=== PATIENT | male | born 1960 | race Caucasian/White ===

== ENCOUNTER 2025-06-26 05:00 | Inpatient (IN) | payer OTHER, SELFPAY ==
[2025-06-26] VITALS (10 sets, daily range): BP systolic 105–140; BP diastolic 70–95; BMI 35.8; BMI 35.4
[2025-06-26 02:35] LABS: Hematocrit 41.7 % (39.0-52.0); Hemoglobin 14.1 g/dL (13.0-18.0); Mean Corp Hgb Conc. 33.8 g/dL (33.0-37.0); Mean Corpuscular Volume 94.3 fL (80.0-94.0); Nucleated Red Blood Cells % 0 % (-); Platelet Count 277 10^3/uL (130-400); Red Cell Dist. Width 13.5 % (11.5-14.5)
[2025-06-26 03:08] LABS: ALT (SGPT) 20 U/L (0-50); AST (SGOT) 27 U/L (17-59); Albumin 4.4 g/dl (3.5-5.0); Alkaline Phosphatase 28 U/L (38-126); Blood Urea Nitrogen 21 mg/dl (9-20); Calcium 9.3 mg/dl (8.4-10.2); Carbon Dioxide 28 mmol/L (22-30); Chloride 106 mmol/L (98-107); Glucose 136 mg/dl (70-99); Potassium 4.1 mmol/L (3.5-5.1); Sodium 142 mmol/L (135-145); Total Protein 7.2 g/dl (6.3-8.2); eGFR > 60.00
[2025-06-26 03:20] LABS: Troponin I 0.021 ng/ml
--- NOTE | 2025-06-26 04:05 | ED.GENMED ---
History of Present Illness
General
Chief Complaint: Breathing Problem
Source: patient
Exam Limitations: none
Time Seen by Provider: 06/26/25 03:12
Nursing documentation reviewed up to this point in time: agreed with
History of Present Illness
History of Present Illness:
Note:
CHIEF COMPLAINT(S)
Difficulty breathing and chest pressure.
HISTORY OF PRESENT ILLNESS
The patient is a 64-year-old male with a history of congestive heart failure since his 30s, presenting with difficulty breathing and a sensation of fullness in the chest. The patient describes feeling as though his 'chest is full of water' extending
up to his throat. Associated symptoms include bloating, nausea, light-headedness, and a sense of fullness with physical activities. He reports that the symptoms are similar to those experienced during previous episodes of heart failure. The patient
denies a history of atrial fibrillation or irregular heartbeat, but mentions a past cardiac abnormality where one of the heart muscles was not functioning correctly. The patient experiences relief at rest but mentions persistent chest pressure and
headaches. He denies any current use of blood thinners. The patient reports having these symptoms for eight days. Admission to the hospital is recommended for further evaluation and management, including a transesophageal echocardiogram to rule out
any potential clots due to suspected atrial fibrillation.
PAST MEDICAL AND SURIGICAL HISTORY
Congestive heart failure diagnosis in the patients 30s.
SOCIAL DETERMINANTS AFFECTING HEALTH
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
SOCIAL HISTORY
The patient denies smoking or drug use. He previously worked as part of an electrical crew.
REVIEW OF SYSTEMS
- Respiratory: Shortness of breath, sensation of fullness in chest.
- Gastrointestinal: Bloating, nausea.
- Neurological: Lightheadedness.
- Cardiovascular: History of congestive heart failure, chest pressure.
PHYSICAL EXAM
General: Alert, no acute distress.
Skin: Warm, dry.
Head: Normocephalic, atraumatic.
Neck: Supple, trachea midline.
Eye Ears, nose, mouth and throat: Oral mucosa moist.
Cardiovascular: Normal peripheral perfusion, No edema.
Respiratory: Respirations are non-labored.
Gastrointestinal: Abdomen nondistended.
Back: Normal range of motion, Normal alignment.
Musculoskeletal: Normal range of motion, normal strength.
Neurological: Alert and oriented to person, place, time, and situation, No focal neurological deficit observed.
Psychiatric: Cooperative, appropriate mood and affect.
PLAN
The recommended plan is to admit the patient for hospital observation and further diagnostic testing, including a transesophageal echocardiogram to evaluate for the presence of any clots, due to the suspected atrial fibrillation. Blood thinners will
be initiated as part of the management plan.
DIFFERENTIAL DIAGNOSIS
The Differential Diagnosis includes, in no particular order and is not limited to:
1. Congestive Heart Failure Exacerbation
2. Atrial Fibrillation
3. Coronary Artery Disease
4. Pulmonary Edema
5. Cardiac Arrhythmia
6. Gastroesophageal Reflux Disease (GERD)
7. Anxiety or Panic Disorder
8. Acute Myocardial Infarction
9. Pericarditis
10. Hypertensive Heart Disease
Disposition:
SUMMARY OF ENCOUNTER
The patient is a 64-year-old male with a history of congestive heart failure presenting with palpitations and shortness of breath on exertion for the last eight days. There is no history of diagnosed atrial fibrillation. His symptoms also include
difficulty breathing and a sensation of chest fullness, with relief at rest but persistent chest pressure and headaches. The symptoms have led to a suspicion of new-onset atrial fibrillation and a potential exacerbation of congestive heart failure.
PLAN
The plan includes admitting the patient for further hospital observation and diagnostic testing, including a transesophageal echocardiogram to assess for potential clots due to suspected atrial fibrillation. Blood thinners may be initiated as part
of the management plan.
MEDICAL DECISION MAKING
Chronic conditions affecting care [congestive heart failure]
Differential Diagnosis included:
1. Congestive Heart Failure Exacerbation
2. Atrial Fibrillation
3. Coronary Artery Disease
4. Pulmonary Edema
5. Cardiac Arrhythmia
6. Gastroesophageal Reflux Disease (GERD)
7. Anxiety or Panic Disorder
8. Acute Myocardial Infarction
9. Pericarditis
10. Hypertensive Heart Disease
Category 1
Non-emergency department records reviewed, with consideration of differential diagnoses.
Category 3
Discussion of management with hospitalists for potential admission and treatment planning.
DIAGNOSIS
Congestive Heart Failure Exacerbation (ICD-10: I50.9)
Suspected Atrial Fibrillation (ICD-10: I48.91)
Past History
Past History
ED Past Medical History: CHF, HTN and NIDDM
Social History
Tobacco: Non-smoker
Alcohol: Occasional
Personal: Single
Living: with family
Employment: Not employed
Phy Exam
Physical Exam
Physical Exam:
.
Scores
Heart Failure Risk
Heart Failure Risk Score: Yes
History of Stroke or TIA: No
History of intubation for respiratory distress: No
Heart rate on ED arrival >/= 110: No
SaO2 <90% on arrival on room air: No
HR >/=110 during 3min walk test (or too ill to perform test): No
ECG has acute ischemic changes: No
Urea >/=12mmol/L (BUN 33.6mg/dL): No
Serum CO2>/=35mmol/L: No
Troponin I or T elevated to LA Level (0.4mg/dL): No
NT-proBNP >/=5,000ng/L (5,000pg/ml): No
HF Risk Score: 0
Admission Status: LOW RISK 2.8% Consider discharge to home with f/u visit to PCP/[employer]
Course
Orders/Labs/Results
Orders:
Orders
06/26/25 02:20
Electrocardiogram (*1) Urgent
Reason for Study: Other
Other Reason for Exam: Respiratory Distress
Cardiac Monitoring- Treatment ONCE
EKG- Treatment ONCE
IV Insert/Care/Rem.- Treatment PRN
CR Chest - 2 Views Urgent
Comment:
Reason For Exam: respiratory distress
O2 Therapy [RESP] Urgent
Titrate/Wean O2 to maintain O2 sat greater than (%): 93
Special Instructions: TO MAINTAIN CONTINUOUS O2 SATS >/= 93%
Pulse Ox/cont/shift [RESP] Urgent
Quantity: 1
Special Instructions: continuous pulse ox
06/26/25 02:28
Complete Blood Count/With Diff Urgent
Comprehensive Metabolic Panel Urgent
NT-proBNP Urgent
Troponin I Urgent
06/26/25 04:35
Admit/Transfer Patient As Directed
Co-Sign Provider:
Level of Care: Inpatient admission
Assign to:: IVU
Physician / Group: He Camejo
Diagnosis: New onet rapid A-fib
Reason for Hospitalization: IV medications
Cardiology Consultation
Expected length of stay greater than two midnights?: Yes
ELOS- Estimated Length of Stay in days: 2
I certify the patient meets the requirements for IP care: Yes
06/26/25 04:36
PRN Pain Medication Management As Directed
May give lesser potent ordered pain med per pt: Yes
preference::
Protocol:: Medication orders for pain may be administered in a
manner that supports deferring to patient preference
when the pt is:
- Requesting an ordered lesser potent pain medication.
Least to most potent pain medications are defined
as: acetaminophen < NSAID < tramadol < opioids
(morphine, oxycodone, hydromorphone).
- Requesting a lesser dose of the same medication IF
ORDERED.
- Requesting a less intrusive route of administration
if both routes are prescribed by the provider (PO <
IV).
06/26/25 04:41
Code Status As Directed
Resuscitation Status: Full Code
06/26/25 04:45
Diltiazem 125 mg/125 ml Nss [Cardizem] 125 mg in 125 ml IV PER PROTOCOL
Initial dose in mg/hr, then titrate:: 5
Titrate to keep:: Heart rate 80-100 bpm
Titrate by mg/hr:: 5 mg/hr
Frequency of titrations (minutes):: 15
Additional Titration Instructions:: discontinue if SBP < 88 systolic
Maximum dose in mg/hr:: 15
Abnormal Lab Results
06/26/25
02:28
RBC 4.42 L 10^6/uL
(4.70-6.10)
MCV 94.3 H fL
(80.0-94.0)
MCH 31.9 H pg
(27.0-31.0)
BUN 21 H mg/dl
(9-20)
Glucose 136 H mg/dl
(70-99)
Alkaline Phosphatase 28 L U/L
(38-126)
06/26/25 02:28
06/26/25 02:28
Vital Signs
Initial and Last Documented VS:
Initial Vital Signs
Temp Pulse Resp BP Pulse Ox
98.1 F 72 24 140/84 96
06/26/25 02:13 06/26/25 02:13 06/26/25 02:13 06/26/25 02:13 06/26/25 02:13
Last Documented Vital Signs
Temp Pulse Resp BP Pulse Ox
98.1 F 114 18 120/88 96
06/26/25 02:13 06/26/25 06:00 06/26/25 06:00 06/26/25 05:45 06/26/25 06:00
*Radiology
Radiology exam reviewed: preliminary read by ED provider (Some pulmonary vascular congestion.)
*Pulse Oximetry
SaO2: 96
Oxygen Mode of Delivery: Room air
Patient hypoxic: no
*EKG
Interpreted by ED Provider?: Yes
Comparison EKG: no comparison EKG present
Heart Rate: 130
Rate: tachycardiac
Rhythm: a-fib
Interval: normal interval
QRS Pattern: normal QRS
Ischemia: no ischemia
*Critical Care Note
Total Time (30-74mins, 75-104mins- exclusive of procedures): Not Applicable
ED Attending Note
-
Portions of this chart may have been created with voice recognition software.� Occasional wrong word or��sound alike� substitutions may have occurred due to the inherent limitations of voice recognition software.
Discharge Plan
Departure
Patient Disposition: Admit
Date of Disposition: 06/26/25
Time of Disposition: 04:06
Presentation/result/management discussed w/ accepting MD/DO: Hospitalist
Condition: Fair
Discharge Problem:
Atrial fibrillation, new onset, Acute exacerbation of CHF (congestive heart failure), Shortness of breath on exertion
Interventions
Interventions:
*Risk Screen - Suicide Last Done: 06/26/25 02:13
*General Assessment Last Done: 06/26/25 02:13
*Neglect/Abuse Screening Last Done: 06/26/25 02:13
*ED- Fall Risk Assessment Last Done: 06/26/25 02:13
*ED COVID-19 Vaccine History Last Done: 06/26/25 02:13
*ED Influenza Vaccine History Last Done: 06/26/25 02:13
ED- Cardiac Assessment Last Done: 06/26/25 03:12
ED- Pulmonary Assessment Last Done: 06/26/25 03:12
--- NOTE | 2025-06-26 04:24 | HPS.HSE ---
Family Physician
-
Family Physician: Jovon Zimmer
Chief Complaint
-
Shortness of breath
History of Present Illness
This is a 64-year-old with past medical history significant for xal-deuyemp-ntydemjhp diabetes, hypertension, CHF with depressed EF since his 30s without history of CAD who presents to the emergency department with approximately 6 to 8 days of
persistent chest pressure and palpitations.
Patient reports that he has been having palpitations which he feels in his chest. He reports that he feels a pressure in his chest as well as in his abdomen. He reports dyspnea on exertion. He also reports orthopnea and PND. He denies any lower
extremity swelling. He denies any cough fevers or chills. He denies feeling lightheaded and he denies feeling dizzy.
He reports compliance with his medications. He tried to get in contact with his balance staff staker at [facility] but he was unable to do so and will not be able to do that till 07 July so he decided come in today due to persistent symptoms.
He reported that he had a cardiac cath done recently for some chest pressure and he had clean coronaries again.
In the emergency department he was found to be afebrile, blood pressure was 110/80 with pulse in the 120s. He was satting 95% on room air. ECG shows atrial fibrillation with rapid ventricular response at a rate of [address] or T wave
changes. Initial troponin was 0.02. His BNP was 1880. Chest x-ray was actually clear without any pulmonary edema or pleural effusion.
CBC was unremarkable. Electrolytes BUN and creatinine were normal.
Medical History
Past Medical History
Past Medical History: Reports CHF, Hypercholesterolemia, NIDDM and Other (GINETTE on CPAP)
Past Surgical History: Reports Orthopedic and Other (Hernia repair)
Social History
Tobacco: Non-smoker
Alcohol: Occasional
Drug: None
Personal:
Living: With Family
Family History
Family History: Not pertinent
Allergies / Home Medications
Allergies reflects when Allergies were last updated in [facility].
Home Medications with original date entered in [facility]
Allergy/Medication List:
Allergies
Allergy/AdvReac Type Severity Reaction Status Date / Time
No Known Allergies Allergy Verified 06/26/25 02:13
Home Medications
amlodipine 10 mg tablet 10 mg PO DAILY 06/26/25
carvedilol 25 mg tablet 25 mg PO Q12H 06/26/25
celecoxib 100 mg capsule 100 mg PO DAILY 06/26/25
ezetimibe 10 mg tablet 10 mg PO DAILY 06/26/25
metformin 500 mg tablet 1,000 mg PO BID 06/26/25
sacubitril 49 mg-valsartan 51 mg tablet (Entresto) 1 tab PO BID 06/26/25
Review of Systems
-
Constitutional: Reports No Symptoms
EENT: Reports No Symptoms
Respiratory: Reports Trouble Breathing
Cardiac: Reports Palpitations
Abdomen/GI: Reports No Symptoms
: Reports No Symptoms
Musculoskeletal: Reports No Symptoms
Skin: Reports No Symptoms
Neurological: Reports No Symptoms
Endocrine: Reports No Symptoms
Hematologic/Lymphatic: Reports No Symptoms
Psych: Reports No Symptoms
Physical Exam
Vital Signs
Vital Signs
Temp Pulse Resp BP Pulse Ox
98.1 F 114 19 105/88 95
06/26/25 02:13 06/26/25 04:00 06/26/25 04:15 06/26/25 04:00 06/26/25 04:15
Physical Exam
General: Well Developed, Well Nourished and No Apparent Distress
HEENT: NormoCephalic, Moist mucous membranes and Atraumatic
Respiratory: Clear; No Wheezes, Rales, Rhonchi or Crackles
Cardiac: S1/S2, Irregular Rhythm and Tachycardia; No Murmur, Rub or Peripheral Edema
GI: Soft, Non Tender, Non Distended and Normal Bowel Sounds; No Organomegaly
Rectal: Deferred by Provider
Genito-urinary: Deferred by me
Musculoskeletal: No Clubbing, No Cyanosis and No Edema
Skin: No Rash
Neuro: AO x 3 and Nonfocal/grossly intact
Hematologic/Lymphatic: No Lymphadenopathy
Psych: Calm
Laboratory Results
-
06/26/25 02:28
06/26/25 02:28
Laboratory Results
Total Bilirubin 0.3 mg/dl (0.2-1.3) 06/26/25 02:28
AST 27 U/L (17-59) 06/26/25 02:28
ALT 20 U/L (0-50) 06/26/25 02:28
Alkaline Phosphatase 28 U/L (38-126) L 06/26/25 02:28
Troponin I 0.021 ng/ml 06/26/25 02:28
Data Reviewed
-
Diagnostic Radiology: Image Personally Visualized and interpreted
Medical Tests (Nuc Med, Echo, EKG etc): Image Personally Visualized and interpreted
Lab Data: Labs Reviewed by me
Impression/Plan
-
IMPRESSION:
64-year-old with history of hle-qalvlvf-hzhcoufdg diabetes, nonischemic cardiomyopathy with depressed EF, hypertension presenting to the emergency department with 8 days of persistent palpitations and chest pressure as well as shortness of breath
with dyspnea on exertion and found to be in atrial fibrillation with rapid ventricular response. Likely symptoms are due to the rapid atrial fibrillation. He has known CHF however today there are no crackles on auscultation, x-ray is clear and he
has no significant peripheral edema. BNP is 1800 which is likely similar to his baseline. Blood pressure remains about 100 systolic.
PLAN:
Repeat atrial fibrillation -new onset rapid A-fib
-Admit to IVU
-Start diltiazem drip,
-Hold amlodipine
-Check TSH, check echocardiogram
-N.p.o. for now with possibility of cardioversion in a.m.
-Start anticoagulation with Eliquis
-Cardiology consulted to CBC
CHF -symptoms more likely due to atrial fibrillation, patient has no pulmonary edema on x-ray or on lung auscultation and he has no peripheral edema. He is not currently on diuretics
-Hold diuretics for now
-Continue Entresto with hold parameters for SBP less than 100
-Continue carvedilol with hold parameters for SBP less than 100
-Daily weights ins and outs
Diabetes -
While n.p.o., hold metformin, sliding scale insulin
GINETTE
-CPAP at bedtime at 5 cm of water
DVT prophylaxis�statin Eliquis
CODE STATUS�full code
[2025-06-26] MEDS: CARDIZEM 125 IV (05:23)
--- NOTE | 2025-06-26 06:52 | PTCARENOTE ---
Pt rec'd on unit from ED awake,alert in afib. rates up to 120. Cardizem gtt at 10 mg/hr (increased just before transfer from ED)
Lungs clear mild dyspnea. adm hx taken and recorded
[2025-06-26 08:12] LABS: Glucose - Point of Care 90 mg/dl (70-99)
[2025-06-26] MEDS: ELIQUIS 5 MG PO (08:17)
[2025-06-26] MEDS: ENTRESTO 49 MG/51 MG 1 TAB PO (08:17)
[2025-06-26] MEDS: ZETIA 10 MG PO (08:17)
[2025-06-26] MEDS: COREG 25 MG PO (08:18)
--- NOTE | 2025-06-26 08:38 | PTCARENOTE ---
Addendum entered by Jewell Lawson RN 06/26/25 10:05:
patient is NOT in NSR he is in Afib with a HR in the 90's.
Original Note:
received patient this am,monitor4 shows NSR, VSS. patient is aware that he is NPO for possible cardioversion this am. waiting to see cardiologists.IV Cardizem @ 10cc/hr infusing without difficulties.
--- NOTE | 2025-06-26 09:35 | CON.CAR ---
Addendum entered and electronically signed by John Cast MD 06/26/25 10:45:
I saw and evaluated the patient, and I provided the substantive portion of the medical decision making.
I reviewed and agree with the note by Ms Bravo and it accurately reflects our care.
I personally performed the medical decision making of the this encounter and my assessment and plan is below:
AF RVR
- new and HR controlled on dilt gtt
- KAM DCCV today
- ELiquis 5 mg bid
- plan outpt eval for ablation
HFrEF presumed
- follows with Bernard
- cont meds
- echo today
Original Note:
Consultation
Consultation Request
Date/Time Consultation Requested: 06/26/25614
Date/Time Consultation Performed: 06/26/25844
Requesting Provider: KARLI Whitaker
Performing Provider: KARLI Villar for Dr. Cast
Reason for Consultation: new Afib with RVR
Medical History
-
Chief Complaint: sob, palps
History of Present Illness:
Mr. Menjivar is a 64 yo male with HTN, HLD, CM (unknown EF), DM and obesity, who presents to the ER with c/o SOB and palpitations for 8 days. He describes mild chest pressure as well. In the ER, EKG showed Afib with RVR which is new. He is admitted
to hospitalist service for acute CHF and we are consulted for new rapid Afib.
Past Medical History
Past Medical History: Other (as above)
Social History
Tobacco: Former Smoker (quit 10 years ago)
Alcohol: Daily (5 beers every other day)
Personal: Single
Living: With Family (father and sister live with him)
Family History
Family History: Reviewed & Not Pertinent
Allergies / Home Medications
Allergy/AdvReac Type Severity Reaction Status Date / Time
No Known Allergies Allergy Verified 06/26/25 02:13
�Medication �Instructions �Recorded �Confirmed �Type
amlodipine 10 mg tablet 10 mg PO DAILY atrial fibrillation 06/26/25 06/26/25 History
carvedilol 25 mg tablet 25 mg PO Q12H Heart 06/26/25 06/26/25 History
Disease/Condition
celecoxib 100 mg capsule 100 mg PO DAILY Pain 06/26/25 06/26/25 History
ezetimibe 10 mg tablet 10 mg PO DAILY High Cholesterol 06/26/25 06/26/25 History
metformin 500 mg tablet 1,000 mg PO BID glucose 06/26/25 06/26/25 History
sacubitril 49 mg-valsartan 51 mg 1 tab PO BID Heart 06/26/25 06/26/25 History
tablet (Entresto) Disease/Condition
Review of Systems
-
History Source: Patient
All other systems: Negative unless noted
Physical Exam
Vital Signs
Temp Pulse Resp BP Pulse Ox
98.1 F 80 19 133/88 96
06/26/25 02:13 06/26/25 09:00 06/26/25 06:02 06/26/25 08:18 06/26/25 08:30
Lab Results
06/26/25 02:28
06/26/25 02:28
Troponin I 0.021 ng/ml 06/26/25 02:28
Zrt-V-Sebldqnyxbk Pept 1880 pg/ml 06/26/25 02:28
Physical Exam
General: Well Developed, Well Nourished and No Apparent Distress
HEENT: Normocephalic and Anicteric
Respiratory: Clear and Non Labored Respirations
Cardiac: S1/S2 and Irregular Rhythm
Breast: Deferred by me
GI: Soft, Non Tender, Non Distended and Normal Bowel Sounds
Rectal: Deferred by Provider
Genito-urinary: Clear Urine
Musculoskeletal: No Clubbing, No Cyanosis and No Edema
Skin: Warm and Dry
Neuro: AO x 3
Psych: Calm
Impression / Plan
-
Afib - new onset, duration unknown.
- rapid ventricular response 130s.
- on Diltiazem drip with improvement of rates and symptoms.
- [id number] score of 2 (HTN, DM).
- on Eliquis, dose given this am.
- plan for KAM and DCCV today, he is agreeable.
- Diltiazem drip stopped prior to DCCV.
HTN - stable on meds.
- Diltiazem drip stopped.
HLD - stable on Zetia.
CM - unknown EF.
- likely reduced based on his medication regimen.
- check echo.
- continue GDMT meds.
- he states having a cath earlier this year that showed normal coronary arteries.
Data Reviewed
-
EKG: Tracing Personally Visualized and interpreted (Afib 130 bpm)
Radiology: Report Reviewed by me (CXR: CHF)
Labs: Labs Reviewed by me
--- NOTE | 2025-06-26 09:40 | PTCARENOTE ---
D/C'd IV cardiae as ordered.
--- NOTE | 2025-06-26 10:07 | PTCARENOTE ---
D/C'd, IV Cardizem drip as ordered. patient remains NPO for CV , report given to laborer wood preserving plant.
--- NOTE | 2025-06-26 10:26 | CM ---
Reviewed chart. Met with Mr. Menjivar to review discharge plans. He states prior to admission he resides with his father and sister in a one stroy home with three steps to enter. He states prior to admission he was independent with ambulation and
adls. He states he does not have any DME in the home. He states he has a prescription plan and uses [facility]. Telephone call to his insurance, ([phone]) to check on coverage for Eliquis 5 mg po bid. HIs co-pay is zero. Placed the
one month free coupon in his red discharge folder. Medical work-up in progress. The discharge plan is to return home with his father and sister when medically stable.
[2025-06-26 10:46] LABS: Hepatitis C Antibody Negative (Negative)
--- NOTE | 2025-06-26 12:24 | PTCARENOTE ---
patient returned from CV, in a NSR, VSS. patient is sleepy, encouraged patient to relax and order some lunch.
--- NOTE | 2025-06-26 12:29 | W.DCSUMMARY ---
Discharge Summary
Discharge Data
Date of Admission: 06/26/25
Date of Discharge: 06/26/25
-
Pending Results: No
Hospital Course
Mr. Menjivar is a 64-year-old male with a medical history of HFrEF, hypertension, and NIDDM who presented with chest pressure and palpitations that had been ongoing for approximately 1 week prior to arrival. He was found to be in atrial fibrillation
with rapid ventricular response. He was started on IV diltiazem drip and anticoagulation with Eliquis. He underwent transesophageal echocardiogram and electrical cardioversion on the morning of 06/26/2025 with roman catholic of normal sinus rhythm.
He will be discharged to home with outpatient cardiology follow-up. He will be continued on anticoagulation with Eliquis. He is already on beta-blockade with carvedilol which he will continue after discharge. Time of hospital discharge he was
medically stable.
General: No Apparent Distress, Comfortable and Conversant
HEENT: NormoCephalic, Moist mucous membranes, Atraumatic
Respiratory: Clear and Non Labored Respirations
Cardiac: S1/S2 and Regular Rhythm; No Rub or Gallop
GI: Soft, Non Tender, Non Distended and Normal Bowel Sounds
Musculoskeletal: No Edema, no deformity
: NO Hansen
Neuro: Awake, Alert, Nonfocal/grossly intact
Psych: Calm and Intact Judgment/Insight
Discharge Plan
-
Patient Disposition: Home (Routine Discharge)
Discharge Diagnosis/Procedures: A-fib with RVR
Condition: Fair
Activity Restrictions/Additional Instructions:
You were admitted for treatment of an abnormal heart rhythm (atrial fibrillation) with a rapid heart rate. You were started on a medication for rate control and underwent electrical cardioversion. Your heart is now back in normal sinus rhythm.
You have been started on a medication called apixaban (brand-name Eliquis) which is a blood thinner use to prevent strokes in patients with atrial fibrillation. You will need to follow-up in the outpatient office with cardiology after discharge.
Referrals:
Theodore Kelly MD [Active, Cardiology]
Referral Note: Follow-up after electrical cardioversion, eval for possible ablation
Jovon Zimmer DO [Family Provider]
Prescriptions:
New
Eliquis 5 mg Tablet
5 mg PO BID 90 Days Qty: 180 0RF
Continued
metformin 500 mg tablet
1,000 mg PO BID
carvedilol 25 mg tablet
25 mg PO Q12H
amlodipine 10 mg tablet
10 mg PO DAILY
ezetimibe 10 mg tablet
10 mg PO DAILY
sacubitril-valsartan [Entresto] 49-51 mg tablet
1 tab PO BID
Held
celecoxib 100 mg capsule
100 mg PO DAILY
Hold Instructions: Restart as directed by your original prescriber
Patient Comments:
pt doesn't take any more last time was months ago
Discharge Orders:
Discharge Patient (As Directed); Ordered 06/26/25
Ordered By: Jacob Diaz
Care Plan Goals
Care Plan Goals:
Problem: Readiness for enhanced knowledge related to diagnosis and treatment plan
Goal: Understand your diagnosis and treatment plan needs, including medications if applicable.
Instructions: Know your diagnosis, underlying causes and treatment plan options, including medications if applicable. Consult with your health care team to learn about your diagnosis and treatment plan, including medications if applicable.
Discharge Date and Time
Print Language: UKRAINIAN
--- NOTE | 2025-06-26 16:44 | PTCARENOTE ---
D/C instructions given to patient, verbalizes understanding. INT D/C'd, telemetry D/C'd. personal belongings packed and sent home with patient. patient refused his flu shot at this time, he stated, 'I will take my dad next week and we will get them.
' D/C to home via wc accompanied by staff.
== END 2025-06-26 16:53 | disposition home or self-care (01) | DRG 309 ==
LOC: IVU 05:00
PROVIDERS: Internal Medicine; Internal Medicine Cardiovascular Disease; ADMITTING PHYSICIAN Internal Medicine; ATTENDING PHYSICIAN Internal Medicine; EMERGENCY PHYSICIAN Student in an Organized Health Care Education/Training Program; FAMILY PHYSICIAN Family Medicine; OTHER PHYSICIAN Internal Medicine Cardiovascular Disease
PROC: 5A2204Z Restoration of Cardiac Rhythm, Single (ICD-10-PCS; 2025-06-26)
PROC: B24BZZ4 Ultrasonography of Heart with Aorta, Transesophageal (ICD-10-PCS; 2025-06-26)
DX: I48.91 Unspecified atrial fibrillation (principal); I31.39 Other pericardial effusion (noninflammatory); I50.22 Chronic systolic (congestive) heart failure; E11.9 Type 2 diabetes mellitus without complications; G47.33 Obstructive sleep apnea (adult) (pediatric); Z79.01 Long term (current) use of anticoagulants; F41.0 Panic disorder [episodic paroxysmal anxiety]; I11.0 Hypertensive heart disease with heart failure; Z87.891 Personal history of nicotine dependence
CPT/HCPCS: 71046; 80053; 82962; 83880; 84484; 85025; 86803; 87070; 90656; 92960; 93005; 93306; 93312; 93320; 93325; 94760; 96365; 99285; G0008